=== PATIENT | female | born 1995 | race Caucasian/White ===

== ENCOUNTER 2017-08-27 11:41 | Emergency (ER) | payer MEDICAID ==
[~2017-08-27] VITALS: Ht 160 cm; Wt 79.5 kg
[2017-08-27 11:50] VITALS: BP 123/85
[2017-08-27] MEDS ORDERED: LIDOCAINE HCL/PF 1% 2 ML VIAL IM ONE (13:15)
[2017-08-27] MEDS ORDERED: CefTRIAXone SODIUM 1 GM/VIAL IM ONE (13:15)
[2017-08-27] MEDS ORDERED: AZITHROMYCIN 250 MG TABLET PO ONE (13:15)
== END 2017-08-27 13:46 | disposition home or self-care (01) ==
LOC: EMS 11:43
DX: Z20.2 Contact with and (suspected) exposure to infections with a predominantly sexual mode of transmission (principal); R03.0 Elevated blood-pressure reading, without diagnosis of hypertension
CPT/HCPCS: 96372; 99283; J0696; J3490